=== PATIENT | female | born 1990 ===

== ENCOUNTER 2025-04-29 19:59 | Emergency (ER) | payer MEDICAID, SELFPAY ==
[2025-04-29 20:00] VITALS: BMI 26.6
[2025-04-29 20:36] VITALS: BP 118/79; PULSE 66; RESP 16; TEMP 37.1; O2SAT 97
[2025-04-29 21:01] LABS: Basophils # (Auto) 0.0 Thou/mm3 (0.0-0.2); Basophils % (Auto) 0 % (0-2.5); Eosinophils # (Auto) 0.1 Thou/mm3 (0.0-0.5); Eosinophils % (Auto) 1 % (0-10); Hematocrit 40.1 % (36.0-46.0); Hemoglobin 13.5 g/dL (12.0-16.0); Immature Granulocytes Auto 0.02 Thou/mm3 (0.00-0.00); Lymphocytes # (Auto) 3.0 Thou/mm3 (1.0-4.8); Lymphocytes % (Auto) 35 % (10-50); Mean Corpuscular HGB Conc 33.7 g/dl (31.0-37.0); Mean Corpuscular Hemoglobin 29.7 pg (25.0-35.0); Mean Corpuscular Volume 88 fL (80-100); Monocytes # (Auto) 0.5 Thou/mm3 (0.0-0.8); Monocytes % (Auto) 6 % (0-12); Neutrophils # (Auto) 4.9 Thou/mm3 (1.8-7.7); Neutrophils % (Auto) 58 % (37-80); Nucleated Red Blood Cell # 0.00 Thou/mm3 (0.00-0.00); Nucleated Red Blood Cell % 0 /100 WBC (0); Platelet Count 350 Thou/mm3 (140-440); RDW Standard Deviation 39.3 fL (36.4-46.3); Red Blood Count 4.54 Miln/mm3 (4.00-5.20); White Blood Count 8.5 Thou/mm3 (3.6-11.0)
[2025-04-29 21:17] LABS: Collection Type, Urine Clean Catch
[2025-04-29 21:26] LABS: HCG Qualitative,Urine Negative
[2025-04-29 21:27] LABS: Bilirubin,Urine Negative (Negative); Blood,Urine Trace (Negative); Clarity,Urine Clear (Clear/Hazy); Color,Urine Yellow (Lt Yel-Yel); Glucose, Urine Negative (Negative); Hyaline Casts,Urine < 1 /hpf (0-1); Ketones,Urine Negative (Negative); Leukocyte Esterase,Urine Negative (Negative); Nitrite,Urine Negative (Negative); PH,Urine 5.5 (5.0-7.0); Protein,Urine Negative (Neg - Trace); RBC,Urine 2 /hpf (0-3); Specific Gravity,Urine 1.031 (1.001-1.035); Squamous Epithelial Cell,Urine 2 /hpf (0-5); Urobilinogen,Urine Negative mg/dL (0.0-1.0); WBC,Urine 1 /hpf (0-5)
[2025-04-29 21:30] LABS: Alanine Aminotransferase 33 U/L (10-49); Albumin, Serum 4.3 gm/dL (3.5-5.0); Anion Gap 11 (7-16); Aspartate Amino Transferase 24 U/L (0-34); BUN/Creatinine Ratio 10 Ratio (12-20); Bilirubin,Total 1.1 mg/dL (0.3-1.2); Blood Urea Nitrogen 8 mg/dL (9-23); Calcium 10.1 mg/dL (8.3-10.6); Calcium (Corrected) 10.1 mg/dL (8.5-10.1); Carbon Dioxide 26.9 mMol/L (20.0-31.0); Chloride 103 mMol/L (98-107); Creatinine (Component) 0.8 mg/dL (0.6-1.3); Estimated Creatinine Clearance 115.4 mL/min (>60); Globulin 2.8 gm/dL (2.3-3.5); Glucose 98 mg/dL (74-106); Osmolality,Calculated 279 (275-295); Potassium 3.4 mMol/L (3.4-5.1); Sodium 141 mMol/L (136-145); Total Protein 7.1 gm/dL (5.7-8.2); eGFR > 60 See Note
[2025-04-29 21:31] LABS: Albumin/Globulin Ratio 1.5 (1.2-2.2); Alkaline Phosphatase 84 U/L (46-116); Lipase 31 U/L (12-53)
--- NOTE | 2025-04-29 21:40 | XR_ITS ---
Examination: CT abdomen and pelvis without contrast. Coronal 3-D reconstructions. Sagittal 2-D reconstructions. Date and time of exam:April 29, 2025 2150 hrs., Comparison January 29, 2022 Indications: Abdominal pain nausea vomiting today CTDI: vol (mGy): 8.87 DLP: (mGycm): 500 Technique: Axial images of the abdomen have been obtained, 3 mm slice thickness Intravenous contrast material has not been administered. Low dose protocols were performed. One or more of the following dose reduction techniques were used; automated exposure control, adjustment of the mA and/or KV according to patient size, use of iterative reconstruction technique. Findings: No renal or ureteral calculi, no hydronephrosis No liver or splenic lesion Absent gallbladder No pancreatic mass Normal appendix Aorta normal size No bowel obstruction or diverticulitis 5 cm anterior left pelvic mass, probable cyst Impression: No renal or ureteral calculi, no hydronephrosis Recommend pelvic sonography to confirm 5 cm left pelvic cyst
--- NOTE | 2025-04-30 00:37 | XR_ITS ---
Examination: Pelvic ultrasound, transabdominal, complete Technique: Transabdominal ultrasound of the pelvis performed using grayscale imaging Date and time of exam: April 30, 2025, 0100 hrs. Indications: Pelvic pain nausea vomiting beginning 5 days ago. Findings: Uterus 9.0 cm endometrial stripe 0.5 cm. No uterine mass or intrauterine gestation. Right ovary 3.2 cm arterial flow. Left ovary 8.5 cm arterial flow, 6.2 x 3.8 x 5.2 cm cyst with mildly irregular margins and internal echoes Impression: [Brain cyst 6.2 x 3.8 x 5.2 cm with mildly irregular margins and internal echoes, recommend 3 month follow-up pelvic sonography
--- NOTE | 2025-04-30 02:12 | PRELIM_ITS ---
Pelvic ultrasound (transabdominal). April 30, 2025 0100 hours Clinical history: pelvic xyet Technique: Real-time, grayscale, transabdominal and transvaginal pelvic ultrasound was performed using Duplex scanning including arterial inflow, venous outflow, color and spectral Doppler. Comparison: No prior study is available for comparison. Findings: The uterus is normal in size measuring 9 x 5 x 6.7 cm. The endometrium is unremarkable and measures 0.5 cm. The right ovary measures 3.2 x 1.9 x 2.8 cm and is unremarkable. The left ovary measures 8.5 x 4 x 5.3 cm and demonstrates a cyst measuring 6.2 x 3.8 x 5.2. Both ovaries demonstrate color flow and spectral waveforms on Doppler evaluation. There is no adnexal mass. There is no free fluid on the submitted images. Impression: No sonographic evidence of ovarian torsion is demonstrated on the submitted images Large 6.2 cm simple appearing left ovarian cyst. Recommend follow-up pelvic ultrasound in 8-12 weeks to revaluate this finding. Report Electronically Signed By: Juan Santizo 04/30/2025 2:11:49 AM [EST]
--- NOTE | 2025-04-30 03:16 | EDNOTE_ITS ---
ED Abdominal Pain RME/HPI General Chief Complaint: Abdominal Pain Stated complaint: ABD PAIN, N/V Time seen by provider: 04/29/25 20:15 Arrival date/time: 04/29/25 19:59 This is a case of 34-year-old female with no medical history came into the emergency room due to lower abdominal pain associated with nausea vomiting for 3 days denies any constipation diarrhea denies any blood in stool denies 2 para 2 no vaginal bleeding persistence of the symptoms this patient decided to start consult in the emergency room Limitations: no limitations Related Data Home Medications ?Medication ?Instructions ?Recorded ?Confirmed hydrocodone 5 mg-acetaminophen 325 1 tab PO Q4H PRN Pa in 01/29/22 01/29/22 mg tablet levothyroxine 100 mcg tablet 1 tab PO DAILY 01/29/22 0 01/29/22 dicyclomine 20 mg tablet 20 mg PO BID 07/02/22 elagolix 150 mg tablet ([place]) 150 mg PO QDAY 07/0207/02/22 levothyroxine 50 mcg capsule 50 mcg PO QDAY 07/02/22 1 09/01/21 Previous Rx's ?Medication ?Instructions ?Recorded metronidazole 500 mg tablet 500 mg PO TID #15 tabs pantoprazole 40 mg granules 40 mg PO QDAY #30 ea 02/05 delayed-release for susp in packet hydrocodone 5 mg-acetaminophen 325 1 tab PO Q6H PRN pa in #15 tabs 04/30/25 mg tablet ondansetron 4 mg disintegrating 4 mg PO Q8H PRN nausea and 04/30/25 tablet vomiting #20 tabs Allergies Allergy/AdvReac Type Severity Reaction Status Date / Time No Known Allergies Allergy Verified 04/29/25 20:00 Review of Systems Review of Systems Systems Reviewed: All systems reviewed, normal except as documented Constitutional Constitutional: Reports system reviewed and no additional complaints, except as documented and Reports as per HPI Cardiovascular Cardiovascular: Reports system reviewed and no additional complaints, except as documented and Reports as per HPI Respiratory Respiratory: Reports system reviewed and no additional complaints, except as documented and Reports as per HPI Gastrointestinal Gastrointestinal: Reports system reviewed and no additional complaints, except as documented, Reports as per HPI, Reports abdominal pain, Reports nausea and Reports vomiting Neurologic Neurologic: Reports system reviewed and no additional complaints, except as documented and Reports as per HPI Past Medical History Past Medical History NEUROLOGIC: Negative Neurological Disorders or Seizures CARDIAC: Negative Cardiac Disorders, Congestive Heart Failure, Edema, Cellulitis or Varicose Veins RESPIRATORY: Negative Chronic Obstructive Pulmonary Disease (COPD) or Asthma GASTROINTESTINAL: Positive Gastrointestinal Disorders and Gall Bladder Disease; Negative Hepatitis GENITOURINARY: Negative Genitourinary Disorders or Renal Disease REPRODUCTIVE: Positive Previous Pregnancies MUSCULOSKELETAL: Negative Musculoskeletal Disorders ENDOCRINE: Positive Endocrine Disorders and Hypothyroidism (TAKES MED STOP 2020 MD AWARE); Negative Diabetes Mellitus Type 1 or Diabetes Mellitus Type 2 HEMATOLOGIC: Negative Blood Disorders or Sickle Cell Disease OTHER HISTORY: Negative Hospitalization, Autoimmune Disease, Shingles, Falls, Blood Transfusions, Blood Transfusion Reaction, Anesthesia Reactions, Chemotherapy, Radiation Therapy, MRSA, Chicken Pox, Measles, Mumps or Cancer Family History FAMILY HISTORY: Positive Family Gastrointestinal Problems and Family Surgery; Negative Family Psychiatric Problems, Family Respiratory Disorders, Family Cardiac Disorders, Family Cancer or Family Anesthesia Reaction Surgical History SURGICAL: Negative Pacemaker or Section Social History SMOKING STATUS: Never smoker SECOND HAND EXPOSURE: No ED Exam General Limitations: Present no limitations General appearance: Present alert, in no apparent distress and other (Patient is awake alert oriented not in distress nontoxic looking well-hydrated well- nourished) Head Head exam: Present atraumatic, normocephalic and normal inspection Eye Eye exam: Present normal appearance, PERRL and EOMI ENT ENT exam: Present normal exam, normal oropharynx and mucous membranes moist Neck Neck exam: Present normal inspection, full ROM and trachea midline; Absent tenderness, meningismus, lymphadenopathy or thyromegaly Chest Chest inspection: Present normal inspection and symmetric chest wall rise; Absent tenderness Respiratory Respiratory exam: Present normal lung sounds bilaterally; Absent respiratory distress, wheezes, stridor, accessory muscle use or prolonged expiratory phase Cardiovascular Cardiovascular exam: Present regular rate, normal rhythm and normal heart sounds; Absent bradycardia, tachycardia, irregular rhythm, systolic murmur or diastolic murmur Abdominal Exam Abdominal exam: Present soft, tenderness (Suprapubic area mild no CVA tenderness bladder is not distended not tender) and normal bowel sounds; Absent distention, guarding, rebound, rigidity, diminished bowel sounds, hyperactive bowel sounds, hypoactive bowel sounds, organomegaly, psoas sign, obturator sign, Britton's sign, Rovsing's sign, tenderness at McBurney's Point, ascites or hernia Extremities Exam Extremities exam: Present normal inspection and full ROM Back Exam Back exam: Present normal inspection and full ROM Neurological Exam Neurological exam: Present alert, oriented X3, CN II-XII intact, normal gait and reflexes normal; Absent motor sensory deficit Psychiatric Psychiatric exam: Present normal affect and normal mood Skin Skin exam: Present warm, dry, intact and normal color Course Quality Measures none Orders Category Date Time Status CT abdomen pelvis wo con Stat Exams 04/29/25 21:40 Completed US pelvic complete Stat Exams 04/30/25 00:37 Taken CBC Stat Lab 04/29/25 20:49 Completed Comprehensive Metabolic Panel Stat Lab 04/29/25 20:49 Completed HCG Qualitative,Urine Stat Lab 04/29/25 21:06 Completed Lipase Stat Lab 04/29/25 20:49 Completed Urinalysis Stat Lab 04/29/25 21:06 Completed Vital Signs Vital signs: Vital Signs Temperature 98.7 F 04/29/25 20:36 Pulse Rate 66 04/29/25 20:36 Respiratory Rate 16 04/29/25 20:36 Blood Pressure 118/79 04/29/25 20:36 Pulse Oximetry (%) 97 04/29/25 20:36 Oxygen Delivery Method Room Air 04/29/25 20:36 Oxygen saturation is 97% in room air Abdominal Pain MDM MDM Narrative MDM Narrative:: This is a case of 34-year-old female with no medical history came into the emergency room due to lower abdominal pain associated with nausea vomiting for 3 days denies any constipation diarrhea denies any blood in stool denies 2 para 2 no vaginal bleeding persistence of the symptoms this patient decided to start consult in the emergency room physical examination patient is awake alert oriented not in distress nontoxic looking well-hydrated well- nourished abdominal exam is benign nonsurgical no guarding no rebound no rigidity mild tenderness on the suprapubic area no guarding no rebound no rigidity negative psoas negative straight or negative Rovsing's negative McBurney's negative Britton sign negative CVA tenderness bladder is not distended not tender the rest of the physical examination and neurological exam is normal and unremarkable excellent skin turgor no signs or symptoms sepsis no signs and symptoms dehydration no signs and symptoms of acute abdomen patient blood test showed no leukocytosis no anemia kidney and liver function is normal no electrolyte imbalance lipase is normal urinalysis normal patient is not negative CT scan showed unremarkable except a pelvic cyst ultrasound showed ovarian cyst approximately 6.5 but negative for ovarian torsion at this point patient will be discharged home with stable condition the importance to see an OB bleach liquor maker for further evaluation and treatment of ovarian cyst was advised she also needs to to have a repeat pelvic ultrasound within 8 to 12 weeks recurrence of the symptoms persistent worsening return to the emergency room immediately or call 911 Patient was discharged with comfortable condition walking with stable gait. Patient verbalized no further complains explained diagnosis and answered patient question. Patient is comfortable with the proposed management plan including the need to follow up with his/her primary care physician and any specialist if applicable Discussed patient for any urgent condition or worsening sx, He/She needed to go to emergency room immediately or call 911. Patient acknowledge the responsibility to follow up as instructed and to monitor her/his symptoms. For any persistence of the symptoms for more than 3-5 days return precaution advised. Discussed the result of the test and was given printed discharge instruction Patient data External records reviewed:: [facility] previous records Clinical information provided by:: patient Social determinants that could affect healthcare access:: none Patient has the following chronic illnesses:: None How is presenting disease/condition affected by chronic disease/condition?: no chronic disease Evaluation data The following diagnostics were reviewed and interpreted by me:: lab results and radiology exam(s) Lab and/or radiology exams considered but not ordered:: Reviewed Interpretation Summary: Reviewed Medications / Prescriptions Medications or Prescriptions considered but not ordered:: Given Medication administrations:: Given Consultations Consultation(s) initiated? (list below): No Diagnosis Differential diagnosis abdominal pain: abdominal pain, acute appendicitis, calculus of kidney, diverticulitis and endometriosis Most likely diagnosis given after review of the tests above:: Ovarian cyst Admission Indicated Admission indicated?: not indicated Explain why admission is indicated or not indicated:: Not indicated Admission Request Was there a request for admission?: No Admission Attestation Admission request attestation: Not indicated Disposition Plan Disposition Plan: Discharge Discharge Attestation Discharge Attestation: The patient and all family members were given an opportunity to ask questions and understood the discharge instructions. Discharge instructions specifically effects, indications for sooner follow up or return to the emergency department, and the expected course of current diagnosis. Patient condition: Stable Discharge Plan Plan Patient Disposition: HOME (Self Care) Patient condition on transfer: Stable Prescriptions/Referrals Prescriptions/Med Rec: New hydrocodone-acetaminophen 5-325 mg tablet 1 tab PO Q6H MDD max 4 tabs per day PRN (Reason: pain) Qty: 15 0RF ondansetron 4 mg tablet,disintegrating 4 mg PO Q8H PRN (Reason: nausea and vomiting) Qty: 20 0RF No Action hydrocodone-acetaminophen 5-325 mg tablet 1 tab PO Q4H PRN (Reason: Pain) Patient Comments: TAKE 1 TABLET BY MOUTH EVERY 4 HOURS NEEDED FOR PAIN levothyroxine 100 mcg tablet 1 tab PO DAILY Patient Comments: TAKE 1 TABLET BY MOUTH EVERY DAY ON EMPTY STOMACH IN THE MORNING 90 DAYS pantoprazole [address] for susp in packet 40 mg PO QDAY Qty: 30 11RF metronidazole 500 mg tablet 500 mg PO TID Qty: 15 0RF Referrals: Kurtis Hernández FNP [Primary Care Provider] - In 1 week Problem List Clinical Impression: Abdominal pain, Ovarian cyst Patient/Caregiver Discharge Instructions Education Materials: Abdominal Pain, ED Ovarian Cyst Additional Instructions: Follow-up with your primary care physician in 2 days for reevaluation and to be referred to OB bleach liquor maker for further evaluation and treatment of ovarian cyst it is very important to follow-up with the OB bleach liquor maker for your ovarian cyst and to have pelvic repeat ultrasound in 8 to 12 weeks as per suggestion of the radiologist recurrence persistent worsening symptoms or any emergent concern call 911 or go to the nearest emergency room take your medication as directed keep hydrated Print Language: [place] Stand Alone Forms: [place] Award Info., Patient Portal Info Letter JOSUE/LEONIDAS Supervising Physician JOSUE/LEONIDAS Supervising Physician: Dr. Gonzalez
[2025-04-30 03:21] VITALS: BP 112/71; PULSE 68; RESP 18; TEMP 36.6; O2SAT 98
== END 2025-04-30 03:22 | disposition home or self-care (01) ==
PROVIDERS: Nurse Practitioner Family; Emergency Provider Emergency Medicine; PCP Nurse Practitioner Family
DX: N83.202 Unspecified ovarian cyst, left side (principal)
CPT/HCPCS: 36415; 74176; 76856; 80053; 81001; 81025; 83690; 85025; 99283

== ENCOUNTER 2025-08-02 16:19 | Emergency (ER) | payer MEDICAID, SELFPAY ==
[2025-08-02 16:20] VITALS: BMI 27.3
--- NOTE | 2025-08-02 16:32 | PD.EDRME ---
Rapid Medical Screening Exam RME Arrival date/time: 08/02/25 16:19 Chief Complaint: Vaginal Bleeding Time Seen by Provider: 08/02/25 16:26 Vital signs: Vital Signs Temperature 98.7 F 08/02/25 16:33 Pulse Rate 80 08/02/25 16:33 Respiratory Rate 16 08/02/25 16:33 Blood Pressure 122/80 08/02/25 16:33 Pulse Oximetry (%) 98 08/02/25 16:33 Oxygen Delivery Method Room Air 08/02/25 16:33 RME Narrative: 34-year-old female with 3 prior vaginal deliveries and live births this is her fourth , LMP June 12 who began bleeding about 30 minutes prior to arrival she evacuated a single clot went through 1 pad and has been cramping and she was advised by her [employer] doctor to come to the ER. Denies any nausea, vomiting, diarrhea, urinary symptoms. Dr. Corey is aware of pts arrival in the ER as she was sent in by Dr. Padilla. I briefly performed a screening evaluation to initiate work-up and expedite care. Complete history, physical exam, and plan of care is deferred to the provider in the main ED. Exam: Head: Normocephalic, atraumatic. Respiratory: Normal effort. No respiratory distress or accessory muscle use. Neuro: Speech normal. Skin: Warm, dry, normal color. Psych: Pleasant. Normal affect. Cooperative. Clinical Impression: Vaginal bleeding in
[2025-08-02 16:33] VITALS: BP 122/80; PULSE 80; RESP 16; TEMP 37.1; O2SAT 98
--- NOTE | 2025-08-02 16:34 | XR_ITS ---
Examination: OB Transvaginal ultrasound of the pelvis, complete Technique: Transvaginal sonographic images pelvis performed using joseph scale imaging Exam date and time: August 02, 2025, 1701 hours INDICATIONS: Pelvic pain vaginal bleeding beginning 30 minutes ago FINDINGS: Uterus 12.2 cm Intrauterine gestation pole 0.9 cm corresponds to 6 weeks 6 days gestational age Cardiac motion 141 bpm Subchorionic hemorrhage 24 x 43 mm Right ovary 3.1 cm arterial flow Left ovary obscured by bowel gas IMPRESSION: Viable intrauterine gestation 6 weeks 6 days Recommend short-term follow-up given the large subchorionic hemorrhage.
--- NOTE | 2025-08-02 16:34 | XR_ITS ---
Examination: Complete OB ultrasound, less than 14 weeks, transabdominal Date and time of exam: August 02, 2025, 1651 hours INDICATIONS: Pelvic pain and vaginal bleeding beginning 30 minutes ago Technique: Obstetrical ultrasound images less than 14 weeks performed via transabdominal imaging Findings: A normal shaped single intrauterine gestation is present in the uterus. pole is 0.8 cm corresponds to 6 weeks 5 days gestational age Cardiac motion 140 bpm Ultrasonographic survey of visible and placental structures unremarkable. Amniotic fluid volume appears appropriate for this estimated gestational age. Right ovary 4.3 cm arterial flow Left ovary 2.4 cm arterial flow IMPRESSION: Viable intrauterine gestation 6 weeks 5 days.
[2025-08-02] MEDS: ACETAMINOPHEN 325 MG TABLET 650 MG PO (17:16)
[2025-08-02 17:19] LABS: Basophils # (Auto) 0.0 Thou/mm3 (0.0-0.2); Basophils % (Auto) 0 % (0-2.5); Eosinophils # (Auto) 0.1 Thou/mm3 (0.0-0.5); Eosinophils % (Auto) 1 % (0-10); Hematocrit 40.3 % (36.0-46.0); Hemoglobin 13.5 g/dL (12.0-16.0); Immature Granulocytes Auto 0.03 Thou/mm3 (0.00-0.00); Lymphocytes # (Auto) 2.7 Thou/mm3 (1.0-4.8); Lymphocytes % (Auto) 27 % (10-50); Mean Corpuscular HGB Conc 33.5 g/dl (31.0-37.0); Mean Corpuscular Hemoglobin 29.5 pg (25.0-35.0); Mean Corpuscular Volume 88 fL (80-100); Monocytes # (Auto) 0.6 Thou/mm3 (0.0-0.8); Monocytes % (Auto) 6 % (0-12); Neutrophils # (Auto) 6.6 Thou/mm3 (1.8-7.7); Neutrophils % (Auto) 66 % (37-80); Nucleated Red Blood Cell # 0.00 Thou/mm3 (0.00-0.00); Nucleated Red Blood Cell % 0 /100 WBC (0); Platelet Count 322 Thou/mm3 (140-440); RDW Standard Deviation 40.2 fL (36.4-46.3); Red Blood Count 4.58 Miln/mm3 (4.00-5.20); White Blood Count 10.0 Thou/mm3 (3.6-11.0)
[2025-08-02 17:26] LABS: Collection Type, Urine Clean Catch
[2025-08-02 17:42] LABS: Bacteria,Urine Rare; Bilirubin,Urine Negative (Negative); Blood,Urine 3+ (Negative); Clarity,Urine Clear (Clear/Hazy); Color,Urine Colorless (Lt Yel-Yel); Culture Indicated,Urine Not Indicated; Glucose, Urine Negative (Negative); Ketones,Urine Negative (Negative); Leukocyte Esterase,Urine Negative (Negative); Nitrite,Urine Negative (Negative); PH,Urine 5.5 (5.0-7.0); Protein,Urine Negative (Neg - Trace); RBC,Urine 9 /hpf (0-3); Specific Gravity,Urine 1.004 (1.001-1.035); Squamous Epithelial Cell,Urine 1 /hpf (0-5); Urobilinogen,Urine Negative mg/dL (0.0-1.0); WBC,Urine < 1 /hpf (0-5)
--- NOTE | 2025-08-02 17:50 | EDNOTE_ITS ---
ED OB Contraction Preg RMI/HPI General Chief complaint: Vaginal Bleeding Stated complaint: VAGINAL BLEEDING, Time Seen by Provider: 08/02/25 16:26 Arrival date/time: 08/02/25 16:19 RME / HPI RME / HPI Narrative: 34-year-old female with 3 prior vaginal deliveries and live births this is her fourth , LMP June 12 who began bleeding about 30 minutes prior to arrival she evacuated a single clot went through 1 pad and has been cramping and she was advised by her DEVELOPER ARCHITECT doctor to come to the ER. Denies any nausea, vomiting, diarrhea, urinary symptoms. Dr. Corey is aware of pts arrival in the ER as she was sent in by Dr. Padilla. Related Data Home Medications ?Medication ?Instructions ?Recorded ?Confirmed hydrocodone 5 mg-acetaminophen 325 1 tab PO Q4H PRN Pa in 01/29/22 01/29/22 mg tablet levothyroxine 100 mcg tablet 1 tab PO DAILY 01/29/22 0 01/29/22 dicyclomine 20 mg tablet 20 mg PO BID 07/02/22 elagolix 150 mg tablet ([place]issa) 150 mg PO QDAY 07/0207/02/22 levothyroxine 50 mcg capsule 50 mcg PO QDAY 07/02/22 1 09/01/21 Previous Rx's ?Medication ?Instructions ?Recorded metronidazole 500 mg tablet 500 mg PO TID #15 tabs pantoprazole 40 mg granules 40 mg PO QDAY #30 ea 02/05 delayed-release for susp in packet hydrocodone 5 mg-acetaminophen 325 1 tab PO Q6H PRN pa in #15 tabs 04/30/25 mg tablet ondansetron 4 mg disintegrating 4 mg PO Q8H PRN nausea and 04/30/25 tablet vomiting #20 tabs cephalexin 500 mg capsule 500 mg PO QID #28 caps 08/02 Allergies Allergy/AdvReac Type Severity Reaction Status Date / Time No Known Allergies Allergy Verified 08/02/25 16:20 ED Exam Narrative Physical exam: Constitutional: Patient alert and oriented. Well appearing. No acute distress. Not toxic appearing. Head: Normocephalic, atraumatic. Eyes: Periorbital regions bilaterally normal to inspection. Conjunctiva clear bilaterally. Sclera anicteric bilaterally. Pupils equal, round, reactive to light bilaterally. Extraocular movements intact bilaterally. Mouth/Throat: Mucous membranes moist. No stridor or muffled voice. No trismus. Handling secretions without difficulty. Airway widely patent. Neck: Supple. Trachea midline. No JVD. No nuchal rigidity. Normal range of motion. Respiratory: Normal effort. No accessory muscle use or respiratory distress. Lungs clear to auscultation bilaterally without rhonchi, wheezes, or crackles. Cardiovascular: RRR. Normal S1/S2. No murmurs or rubs. Radial pulses intact bilaterally. Abdomen: Soft. Non-distended. Non-tender throughout. No pulsatile mass. No guarding or rebound. Negative Britton?s sign. Negative McBurney?s point tenderness. Negative Rovsing?s. Back: No midline tenderness or step-offs. No CVA tenderness to palpation bilaterally. Upper Extremities: No gross deformities. Lower Extremities: No gross deformities. No edema or calf tenderness. Neuro: Speech normal. No gross motor or sensory deficits to upper or lower extremities bilaterally. GCS 15. CN II?XII grossly intact. Skin: Warm, dry, normal color. Psych: Normal affect. Cooperative. Normal insight. : Deferred Course Quality Measures none Orders Category Date Time Status NPO NOW Care 08/02/25 16:34 Completed Specimen to pathology NOW Care 08/02/25 16:40 Completed Diet NPO (NOW) Diet 08/02/25 16:34 Active US OB <= 14 weeks fetus Stat Exams 08/02/25 16:34 Completed US OB transvaginal Stat Exams 08/02/25 16:34 Completed ABO/RH Type Stat Lab 08/02/25 16:48 Completed Beta HCG,Quantitative Stat Lab 08/02/25 16:48 Completed CBC Stat Lab 08/02/25 16:48 Completed CMP [Comprehensive Metabolic Panel] Stat Lab 08/02/25 16:48 Completed Lipase Stat Lab 08/02/25 16:48 Completed UA, C/S IF [Urinalysis, C/S if Indicated] Stat Lab 08/02/25 17:14 Completed Acetaminophen Tab [Tylenol Tab] Med 08/02/25 16:34 Discontinued 650 mg PO X1 ONE Vital Signs Vital signs: Vital Signs Temperature 98.7 F 08/02/25 16:33 Pulse Rate 80 08/02/25 16:33 Respiratory Rate 16 12/11/25 16:33 Blood Pressure 122/80 08/02/25 16:33 Pulse Oximetry (%) 98 08/02/25 16:33 Oxygen Delivery Method Room Air 08/02/25 16:33 Vaginal Bleeding MDM Narrative MDM Narrative: MDM: This patient is in the first trimester of her and after a careful history, physical exam, and evaluation, is found to be at risk of a miscarriage. There is a confirmed heart tracing noted on ultrasound with a normal Hb, pt has remained hemodynamically stable in the ER without any further bleeding and serial abdominal exams remain benign without peritonitis.. The likelihood of an ectopic is extremely low. There are no signs of an infection at this time. The patient is instructed to follow-up with an Farm Machine Tender within 48-72 hours for re-evaluation. The patient is warned to return to the ED if she develops significant bleeding, dizziness, syncope, or severe pain. E lab work with a minimally elevated ALT 125 safe for outpatient follow-up however remainder of labs without severe metabolic or electrolyte abnormality this is not consistent with help syndrome, UA notable for microscopic hematuria and rare back dysuria without white cells we will prescribe antibiotics empirically, blood type pending however given new DEVELOPER ARCHITECT [place] guidelines RhoGAM is not indicated for trimester , patient safe for discharge Patient data External records reviewed:: [facility] records Clinical information provided by:: patient Social determinants that could affect healthcare access:: none Patient has the following chronic illnesses:: As noted How is presenting disease/condition affected by chronic disease/condition?: no chronic disease Evaluation data The following diagnostics were reviewed and interpreted by me:: lab results and radiology exam(s) Lab and/or radiology exams considered but not ordered:: Additional Labs and radiology considered, but not ordered as they were not clinically indicated at this time. Interpretation Summary: CBC notable for 0.03 thousand elevated immature granulocyte number however hemoglobin within normal limits at 13.5 and hematocrit minimally elevated at 40.3 Medications / Prescriptions Medications or Prescriptions considered but not ordered:: I ordered medications based on the patient?s clinical needs and assessment, as documented in the chart. For medications not prescribed, they were not indicated for the patient's current condition, and I determined they were unnecessary at this time to avoid potential risks or complications. Medication administrations:: Medication Administration History Discontinued Medications Acetaminophen (Acetaminophen 325 Mg Tablet) 650 mg PO X1 ONE Stop: 08/02/25 16:35 Last Admin: 08/02/25 17:16 Dose: 650 mg Documented By: VG As noted Consultations Consultation(s) initiated? (list below): No Diagnosis Vaginal Bleeding Differential Diagnosis: missed , threatened and incomplete Most likely diagnosis given after review of the tests above:: Threatened Admission Indicated Admission indicated?: not indicated Admission Request Was there a request for admission?: No Disposition Plan Disposition Plan: Discharge Discharge Attestation Discharge Attestation: The patient and all family members were given an opportunity to ask questions and understood the discharge instructions. Discharge instructions specifically effects, indications for sooner follow up or return to the emergency department, and the expected course of current diagnosis. Patient condition: Stable Discharge Plan Plan Patient Disposition: HOME (Self Care) Patient condition on transfer: Stable Prescriptions/Referrals Prescriptions/Med Rec: New cephalexin 500 mg capsule 500 mg PO QID Qty: 28 0RF No Action hydrocodone-acetaminophen 5-325 mg tablet 1 tab PO Q4H PRN (Reason: Pain) Patient Comments: TAKE 1 TABLET BY MOUTH EVERY 4 HOURS NEEDED FOR PAIN levothyroxine 100 mcg tablet 1 tab PO DAILY Patient Comments: TAKE 1 TABLET BY MOUTH EVERY DAY ON EMPTY STOMACH IN THE MORNING 90 DAYS pantoprazole [address] for susp in packet 40 mg PO QDAY Qty: 30 11RF metronidazole 500 mg tablet 500 mg PO TID Qty: 15 0RF hydrocodone-acetaminophen 5-325 mg tablet 1 tab PO Q6H MDD max 4 tabs per day PRN (Reason: pain) Qty: 15 0RF ondansetron 4 mg tablet,disintegrating 4 mg PO Q8H PRN (Reason: nausea and vomiting) Qty: 20 0RF Referrals: Ad Du MD [Primary Care Provider, DEVELOPER ARCHITECT] - In 1 week Problem List Clinical Impression: Miscarriage, threatened, early , Asymptomatic bacteriuria Patient/Caregiver Discharge Instructions Education Materials: ED Possible Miscarriage ... Additional Instructions: Follow up with your DEVELOPER ARCHITECT doctor within 48 hours. Return to the Emergency Room immediately for any new, worsening, continuing symptoms or any concerns at all. Return to the Emergency Room within 48 hours if you are unable to follow up with your DEVELOPER ARCHITECT doctor within 48 hours. Print Language: Salvadorean Stand Alone Forms: [place] Award Info., Patient Portal Info Letter PA/ORE STORAGE DRIER Supervising Physician PA/[employer] STOR[employer]ER Supervising Physician: Dr. Arevalo
[2025-08-02 18:00] LABS: Alanine Aminotransferase 125 U/L (10-49); Albumin, Serum 4.5 gm/dL (3.5-5.0); Albumin/Globulin Ratio 1.5 (1.2-2.2); Alkaline Phosphatase 93 U/L (46-116); Anion Gap 10 (7-16); Aspartate Amino Transferase 29 U/L (0-34); BUN/Creatinine Ratio 11 Ratio (12-20); Bilirubin,Total 1.0 mg/dL (0.3-1.2); Blood Urea Nitrogen 8 mg/dL (9-23); Calcium 9.4 mg/dL (8.3-10.6); Calcium (Corrected) 9.4 mg/dL (8.5-10.1); Carbon Dioxide 24.3 mMol/L (20.0-31.0); Chloride 104 mMol/L (98-107); Creatinine (Component) 0.7 mg/dL (0.6-1.3); Estimated Creatinine Clearance 129.3 mL/min (>60); Globulin 3.0 gm/dL (2.3-3.5); Glucose 87 mg/dL (74-106); Lipase 34 U/L (12-53); Osmolality,Calculated 272 (275-295); Potassium 3.7 mMol/L (3.4-5.1); Sodium 138 mMol/L (136-145); Total Protein 7.5 gm/dL (5.7-8.2); eGFR > 60 See Note
== END 2025-08-02 18:34 | disposition home or self-care (01) ==
PROVIDERS: Physician Assistant; Emergency Provider Family Medicine; PCP Specialist
DX: O20.0 Threatened abortion (principal); O99.891 Other specified diseases and conditions complicating pregnancy; R82.71 Bacteriuria; Z3A.01 Less than 8 weeks gestation of pregnancy
CPT/HCPCS: 36415; 76801; 76817; 80053; 81001; 83690; 84702; 85025; 86900; 86901; 99283; A9270